=== PATIENT | female | born 1940 | race Caucasian/White ===

== ENCOUNTER → 2020-05-01 09:00 | Outpatient (CLI) | payer MEDICARE, OTHER, SELFPAY ==
--- NOTE | 2020-05-01 13:55 | DIET.PN ---
Dietary Progress Note Assessment: 79y F referred to see dietitian for help managing her DM2 and CKD3. Pt is followed by nephrology at [facility], has hx of lung cancer c COPD and hx of hyponatremia and iron deficiency anemia which have both resolved. Pt is frequently in and out of hospital c COPD flares requiring prednisone therapy and taper. Pts weight often swings 10-20#, pt having trouble moderating. 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 Pt has been instructed to watch protein and potassium by her chief resource officer. Pt has been monitoring her protein and potassium intake 46.43 g Pro, 56.41 g PRO 1400mg K+, 2,000mg+ another day Pt was at CKD2 but recently dropped in eGFR, pt eager for help c dietary management of renal disease. Pt has received both doses of covid vaccine and starts pulmonary rehab next week. Pt currently supplements c AREDS, glycolax, [place] 3, and MVI. HT: 64 WT: 135# UBW: 145# Labs: hx A1c 6.4, K+ 4.6, eGFR <60 B: 3/4c dry oatmeal, 3/4c blueberries Sn: dill peppers c hummus Nutrition Diagnosis: altered nutrition related laboratory values (A1c, eGFR) r/t endocrine and renal dysfunction and nutrition related knowledge deficit aeb A1c 6.4, eGFR <60, pt is confused on what to count as protein and how to moderate potassium. Interventions: 1. Educated pt on the renal diet for CKD3. Using handouts, discussed protein aiming for 50-60g/d, K+, phosphorus, and sodium in the diet. Recc pt maintain 1500-2000mg sodium intake/d, limit refined grain portions to 2/3c at one occasion, and space high K+ foods to not cluster many in one meal or day focusing on moderating potato, banana, tomato, avocado. Pt will count traditional protein foods and not worry about the amount in most vegetables or fruits. 2. Prioritize plant based fat intake to support weight regulation, support respiratory system as well as kidneys and endocrine fxn. Monitoring/Evaluations: fu in 2mo after next set of renal labs to adjust diet and assess progress.
== END ==
PROVIDERS: Referring Provider Internal Medicine Geriatric Medicine; Visit Provider Internal Medicine Geriatric Medicine
DX: E11.22 Type 2 diabetes mellitus with diabetic chronic kidney disease (principal); N18.30 Chronic kidney disease, stage 3 unspecified; J44.9 Chronic obstructive pulmonary disease, unspecified; Z71.3 Dietary counseling and surveillance; Z85.118 Personal history of other malignant neoplasm of bronchus and lung
CPT/HCPCS: 97803

== ENCOUNTER → 2020-09-04 15:57 | Outpatient (CLI) | payer MEDICARE, OTHER, SELFPAY | PROVIDERS: Referring Provider Internal Medicine Geriatric Medicine; Visit Provider Internal Medicine Geriatric Medicine | DX: N18.9 Chronic kidney disease, unspecified (principal); E11.22 Type 2 diabetes mellitus with diabetic chronic kidney disease ==

== ENCOUNTER → 2020-11-13 15:13 | Outpatient (CLI) | payer MEDICARE, OTHER, SELFPAY ==
--- NOTE | 2020-11-13 15:18 | DIET.PN1 ---
Dietary Progress Note 80y F attending Telehealth f/u for CKD3, DM2, and COPD Pt hospitalized in August 2020 for COPD exacerbation, currently finishing prednisone. Pt recently quit smoking cigarettes and is having some edgy feelings associated with abstinence. Pt is not exercising, feeling poorly, eating higher calorie foods, pt desires 5# weight loss. Unusual Intake: pancakes, coffee and tumeric tea, bowl pumpkin ice cream, flour tortilla 2 eggs, sliced avocado, cheese, cranberry sauce pancakes, 3 turkey sticks, 3 cheese sticks, 2 hb eggs, grapes cheerios c almond milk, pasta salad c jumbo shrimp, 2 hb eggs, strawberries over lukasz food cake c lite whipped topping turkey kielbasa with brussels sprouts pt is going into grocery store for shopping still and feels comfortable starting back at the [facility]. Interventions: 1. Start going to the twice per week and start slow to not exacerbate COPD as pt likely deconditioned. This will assist mood, energy, and assist in weight loss. 2. Reinstitute snacks at lunch time (dill pepper c hummus). Pt skipping lunch so indulging in high kcal, high carb items during mid afternoon. 3. Purchase some low kcal, low carb foods to have on hand: [employer] carb master yogurt, chicken breast, shrimp, pork loin 4. Introduced pt to sheet de la paz meals for easier meal prep. Emailed pt two websites with healthy choices. 5. Pt will alternate sheet de la paz meals and omelets for dinner until feeling stronger and reaching weight goal. Telehealth f/u in 2mo
== END ==
PROVIDERS: Referring Provider Internal Medicine Geriatric Medicine; Visit Provider Internal Medicine Geriatric Medicine
DX: E11.22 Type 2 diabetes mellitus with diabetic chronic kidney disease (principal); N18.30 Chronic kidney disease, stage 3 unspecified; J44.9 Chronic obstructive pulmonary disease, unspecified; Z71.3 Dietary counseling and surveillance
CPT/HCPCS: 97803

== ENCOUNTER → 2021-01-18 09:00 | Outpatient (CLI) | payer MEDICARE, OTHER, SELFPAY ==
--- NOTE | 2021-01-18 16:41 | DIET.PN1 ---
Dietary Progress Note Assessment: 80y F with DM2, CKD3, COPD stage two and newly diagnosed osteopenia attending telehealth visit for addressing osteopenia reccs into her already complicated nutrition picture. Pt recently hospitalized for hyponatremia so is following 2L fluid restriction and taking sodium chloride pills. Pts DEXA scan came back borderline osteopenia and osteoporosis. Pt currently taking 500mg calcium bid and 1,000 IU Vitamin D daily. Pt going to [facility] twice per week for cardio exercise but desires safe weight bearing exercises. Interventions: 1. Reviewed MNT for osteopenia with patient. Pts current supplementation should not negatively affect her other health conditions. Pt eats some yogurt and cheese daily, also fortified almond milk. RD does not recommend increasing dairy intake secondary to CKD3, does not recommend mineral water as source of calcium as also source of potassium. 2. Introduced pt to Dr. Gonzales's Yoga for Osteoporosis which is a low impact yoga with weight bearing but without postures that could cause shear or compression injuries. Discussed pt talking to [facility] staff about light wrist or ankle weights to wear while walking track. 3. Because pts diet is quite compliant to her health conditions, low in ultraprocessed foods, recc pt have low-sodium soup or broth rather than no-sodium version to consume when having loose bowl movements to protect her from the hyponatremia as she is not on diuretics and did have bout of diarrhea leading up to hyponatremia. Monitoring/Evaluations: Pt will request nutrition visits for 2021 and we will continue working together to support her nutrition needs considering her multiple comorbidities. Electronically Signed by: Rajani Fisher 01/18/21 16:41 Clinical Dietitian [address] [place] [address]
== END ==
PROVIDERS: Referring Provider Internal Medicine Geriatric Medicine; Visit Provider Internal Medicine Geriatric Medicine
DX: E11.22 Type 2 diabetes mellitus with diabetic chronic kidney disease (principal); N18.30 Chronic kidney disease, stage 3 unspecified; Z71.3 Dietary counseling and surveillance; M85.80 Other specified disorders of bone density and structure, unspecified site; J44.9 Chronic obstructive pulmonary disease, unspecified
CPT/HCPCS: 97803

== ENCOUNTER → 2021-04-12 15:26 | Outpatient (CLI) | payer MEDICARE, OTHER, SELFPAY ==
--- NOTE | 2021-04-12 15:33 | DIET.OUTPTC ---
Dietary Outpatient Consultation Note Consultation Date: 04/12/2021 80y F attending telehealth RD visit for ongoing care regarding her CKD3 and DM2. Current A1c 6.0 indicating good BG control. No new changes to renal labs. Pt reports being more tired than usual and is unsure why. Has referral to atmospheric technician as hemotological labs are skewed, looking like anemia of CKD. Pt reports increased carb cravings with her fatigue and not feeling as satisfied with a reasonable portion size. Discussed ensuring enough fiber in diet to help with cravings. Also discussed carb control small tortilla to make personal size quesadilla with salsa, or thin slice toast c 1 tsp peanut butter as reasonable snack options. Discussed using a hard candy as a way to divert cravings in evening. Pt plans to go to [facility] three days per week again starting tomorrow, has not been since Feb 22 and feels this may be contributing to her current mood. f/u in 2mo to assess progress and problem solve barriers. Electronically Signed by: Rajani Fisher 04/12/21 15:33 Clinical Dietitian [address] [address]
== END ==
PROVIDERS: Referring Provider Internal Medicine Geriatric Medicine; Visit Provider Internal Medicine Geriatric Medicine
DX: E11.22 Type 2 diabetes mellitus with diabetic chronic kidney disease (principal); N18.30 Chronic kidney disease, stage 3 unspecified; Z71.3 Dietary counseling and surveillance
CPT/HCPCS: 97803

== ENCOUNTER → 2021-06-07 15:45 | Outpatient (CLI) | payer MEDICARE, OTHER, SELFPAY ==
--- NOTE | 2021-06-08 14:32 | DIET.PN1 ---
Dietary Progress Note 81y F attending [address] f/u virtual session for DM2 and CKD3. Pts renal labs stable, pts medical assistant float and contracts specialist have decided she is doing so well she is only having to visit them twice yearly rather than three times yearly. Pt successfully quit smoking since our last visit. Pt is motivated to cook at home since last visit and started attending [facility] twice weekly to exercise. Pt presents today with concerns regarding some diarrhea and bloating x1y. Discussed pt looking at her food labels to see if any of her DM sweets contain sugar alcohols, pt may be overconsuming sugar etoh causing bloating and diarrhea. Reviewed benefit of plant-based proteins for renal health and DM health (high fiber often). Discussed ways to use canned and dried beans in diet. F/U in 2mo to continue education and supportive nutrition care. Electronically Signed by: Rajani Fisher 06/08/21 14:32 Clinical Dietitian [id number] [place] [address]
== END ==
PROVIDERS: Referring Provider Internal Medicine Geriatric Medicine; Visit Provider Internal Medicine Geriatric Medicine
DX: E11.22 Type 2 diabetes mellitus with diabetic chronic kidney disease; N18.30 Chronic kidney disease, stage 3 unspecified
CPT/HCPCS: 97803

== ENCOUNTER → 2021-08-02 14:21 | Outpatient (CLI) | payer MEDICARE, OTHER, SELFPAY ==
--- NOTE | 2021-08-02 15:13 | DIET.PN1 ---
Dietary Progress Note 81y F attending telehealth f/u for help with CKD3 and DM2, attending visit from her living room, RD in hospital office. Pt wants to discuss her recent weight gain- states related to not continuing food diary, stopped smoking using smoking cessation aid July 18 142.1# July 27 150.5# August 02 147.1# no swelling in feet and ankles, is constipated, some bloating in belly prefers to be around 140# Pt weighs self the same time of day, does vitals BMs: every other day to every two days, not on fluid restriction right now but still restricting due to frequent hyponatremia. Pt attending [facility] for walking sporadically, espressing need for new friends to work out with as most of hers have , and friend who went to now has dementia. Interventions: 1. Choose WG bread (renal fxn okay for this) for egg in a hole and serve with high fiber veg side. 2. Reintroduce hummus c dill peppers 3. Continue journaling food for assisted maintenance 4. Discussed joining group class at or senior center to socialize. f/u in 2mo to continue progress. Electronically Signed by: Rajani Fisher 08/02/21 15:13 Clinical Dietitian [address] [id number]
== END ==
PROVIDERS: Referring Provider Internal Medicine Geriatric Medicine; Visit Provider Internal Medicine Geriatric Medicine
DX: E11.22 Type 2 diabetes mellitus with diabetic chronic kidney disease (principal); N18.30 Chronic kidney disease, stage 3 unspecified; Z71.3 Dietary counseling and surveillance
CPT/HCPCS: 97803

== ENCOUNTER → 2022-04-18 15:05 | Outpatient (CLI) | payer MEDICARE, OTHER, SELFPAY ==
--- NOTE | 2022-04-18 15:11 | DIET.OUTPTC ---
Dietary Outpatient Consultation Note Consultation Date: 04/18/2022 81y F attending telehealth f/u for help with CKD3 and DM2, attending visit from her living room, RD in hospital office. Pt with low appetite, feels it is due to depression. Pt had been on citalopram in the past which worked well for her, but her QT is too high, PCP says this med won't work. Pt states PCP checking with cardiology but pt also open to other medications. Weight: 129# yesterday, 132# today, regular body weight is 140s. Depression causing pt not to want to cook or clean dishes. Daughter working 5d/w but helps and cooks Mon and Tues. Pt has had a few days where she did not realize she hadn't eaten until 3pm. Pt does vitals and meds still, drinks coffee, watching TV. Pt not anemic in early February 2022, hx IV iron infusions. A1c 5.9 no DM medication. No recent steroid use for lungs. When hungry, often chooses toast with pb and SF jam or yogurt instead of the homemade soups in freezer. Sees fish boning machine feeder in May. Pt feeling overwhelmed, curious about scheduling in eating though she wakes up erratically throughout the morning. Often up until 1-2am. Wakes 9-10am. Pt will set up a daily 11:30am phone alarm to eat. Pt will contact RD in one week regarding whether or not phone timer worked. F/U in 2mo via telehealth. Electronically Signed by: Rajani Fisher 04/18/22 15:11 Clinical Dietitian [address] [address]
== END ==
PROVIDERS: Referring Provider Internal Medicine Geriatric Medicine; Visit Provider Internal Medicine Geriatric Medicine
DX: E11.22 Type 2 diabetes mellitus with diabetic chronic kidney disease (principal); N18.30 Chronic kidney disease, stage 3 unspecified; Z71.3 Dietary counseling and surveillance
CPT/HCPCS: 97803

== ENCOUNTER → 2022-06-13 16:25 | Outpatient (CLI) | payer MEDICARE, OTHER, SELFPAY ==
--- NOTE | 2022-06-16 15:25 | DIET.OUTPTC ---
Dietary Outpatient Consultation Note Consultation Date: 06/16/2022 Pt in her home, RD in hospital office. Pt agrees to telehealth visit using [place] jamil. Pt reports magnesium levels were low in last labwork, otherwise numbers looking good. eGFR 58, Cr 0.94. Pt is enrolled in pulmonary rehab, got new antidepressant and is feeling much better than last visit. Pt has been batch cooking with granddaughter and is feeling more energy to cook for self as well. Pts vitamin D levels 24, recc by PCP to increase supplement by 1,000IU/d. Reviewed all of pts supplements to find she will be taking 2,800IU daily. Recc following PCP advice and to have Vitamin D checked at end of summer. Discussed magnesium supplementation vs high magnesium foods. Pt could eat handful almonds or 2 tbs almond butter and belarusian chard to support mag levels. Pt planning to go outside this weekend to garden. Reviewed 15min sun exposure for skin absorbed vitamin d. Pt will try to attain this in late morning or late afternoon rather than when sun is at peak. f/u in 2mo to continue monitoring this patient with complex nutrition needs. Electronically Signed by: Rajani Fisher 06/16/22 15:25 Clinical Dietitian [address] [place] [address]
== END ==
PROVIDERS: PCP Internal Medicine Geriatric Medicine; Referring Provider Internal Medicine Geriatric Medicine
DX: E83.42 Hypomagnesemia (principal); E11.22 Type 2 diabetes mellitus with diabetic chronic kidney disease; N18.30 Chronic kidney disease, stage 3 unspecified; Z71.3 Dietary counseling and surveillance
CPT/HCPCS: 97803